=== PATIENT | female | born 1945 | race American Indian/Alaskan Native ===

== ENCOUNTER 2019-07-30 06:13 | Emergency (ER) | payer MEDICARE ==
--- NOTE | 2019-07-30 07:29 | XRay Report ---
CHEST 1 VIEW INDICATION: Chest Pain. COMPARISON: 03/03/2014 FINDINGS: Support devices: None. Heart: Within normal limits. Lungs/Pleura: Minimal streaky right basilar airspace disease with otherwise clear lungs. Additional findings: None. IMPRESSION: 1. Pulmonary findings as above. Signer Name: Efrain Gallegos MD Signed: 07/30/2019 7:24 AM Workstation Name: [id number]
[2019-07-30 07:56] LABS: Basophils # (Auto) 0.1 K/mm3 (0.0-0.1); Basophils % (Auto) 0.8 % (0.0-1.8); Eosinophils # (Auto) 0.2 K/mm3 (0.0-0.4); Eosinophils % (Auto) 1.9 % (0.0-4.3); Hematocrit 33.4 % (30.3-42.9); Lymphocytes % (Auto) 11.1 % (13.4-35.0); Mean Corpuscular HGB Conc 33 % (30-34); Mean Corpuscular Volume 96 fl (79-97); Monocytes # (Auto) 0.6 K/mm3 (0.0-0.8); Monocytes % (Auto) 6.6 % (0.0-7.3); Platelet Count 272 K/mm3 (140-440); Red Blood Count 3.49 M/mm3 (3.65-5.03); Red Cell Distribution Width 13.7 % (13.2-15.2)
[2019-07-30 08:22] LABS: BUN/Creatinine Ratio 26; Blood Urea Nitrogen 23 mg/dL (7-17); Calcium 10.1 mg/dL (8.4-10.2); Hemolysis Index 4
[2019-07-30] MEDS ORDERED: ALBUTEROL 2.5 MG/3 ML NEBU IH ONE (08:28)
--- NOTE | 2019-07-30 08:53 | Emergency Department Report ---
<BETHZAIRE SHI - Last Filed: 07/30/19 18:13> ED Shortness of Breath HPI - General Chief Complaint: Dyspnea/Respdistress Stated Complaint: FLUID IN HEART Time Seen by Provider: 07/30/19 08:13 Source: patient Mode of arrival: Ambulatory Limitations: No Limitations - History of Present Illness Initial Comments: This is a 74-year-old female woke up last night with shortness of breath, and productive cough. Used her albuterol [id number] with no relief. Shortness of breath continued and she was brought to the hospital this morning. She denies chest pain, no leg swelling. She is compliant with all her home medications. No known sick contacts she has not taken flu shot this season. PMH of Asthma, and CHF. Last admission to the hospital on 04/28 for new onset CHF. MD Complaint: shortness of breath, cough -: Sudden Consistency: constant Improves With: nothing Worsens With: nothing Known History Of: asthma, congestive heart failure Associated Symptoms: cough, sputum production Treatments Prior to Arrival: none - Related Data Home Oxygen Therapy: No Previous Rx's Medication Instructions Recorded Last Taken Type Albuterol Sulfate [Proair 90 mcg IH Q4HR PRN #2 aer.[email or web address] 07/30/19 Unknown Rx Respiclick] Ipratropium (Nf) [Atrovent] 2 puff IH Q6HR PRN #1 inha 07/30/19 Unknown Rx levoFLOXacin [Levaquin TAB] 500 mg PO QDAY #5 tablet 07/30/19 Unknown Rx predniSONE [Deltasone] 40 mg PO QDAY #8 tab 07/30/19 Unknown Rx Allergies Allergy/AdvReac Type Severity Reaction Status Date / Time Penicillins Allergy Shortness Verified 03/03/14 06:29 of Breath ED Review of Systems Comment: All other systems reviewed and negative Constitutional: no symptoms reported Respiratory: cough, shortness of breath Cardiovascular: denies: chest pain, palpitations, edema, syncope, paroxysmal nocturnal dyspnea Endocrine: no symptoms reported Skin: denies: rash, lesions ED Past Medical Hx - Past Medical History Previous Medical History?: Yes Hx Hypertension: Yes Hx Congestive Heart Failure: Yes Hx Asthma: Yes Additional medical history: HIGH CHOLESTEROL, hypothyroid, sciatica - Surgical History Past Surgical History?: Yes Hx Appendectomy: Yes Additional Surgical History: C/S - Social History Smoking Status: Former Smoker Substance Use Type: None - Medications Home Medications: Home Medications Medication Instructions Recorded Confirmed Last Taken Type Albuterol Sulfate [Proair 90 mcg IH Q4HR PRN #2 aer.pow.ba 07/30/19 Unknown Rx Respiclick] Ipratropium (Nf) [Atrovent] 2 puff IH Q6HR PRN #1 inha 07/30/19 Unknown Rx levoFLOXacin [Levaquin TAB] 500 mg PO QDAY #5 tablet 07/30/19 Unknown Rx predniSONE [Deltasone] 40 mg PO QDAY #8 tab 07/30/19 Unknown Rx ED Physical Exam - General Limitations: No Limitations General appearance: alert, in no apparent distress - Head Head exam: Present: atraumatic - Eye Eye exam: Present: normal appearance - ENT ENT exam: Present: normal exam - Neck Neck exam: Present: normal inspection - Respiratory Respiratory exam: Present: decreased breath sounds - Cardiovascular Cardiovascular Exam: Present: regular rate, normal heart sounds - GI/Abdominal GI/Abdominal exam: Present: soft. Absent: distended, tenderness, guarding, rebound, rigid - Rectal Rectal exam: Present: deferred - Extremities Exam Extremities exam: Present: normal inspection, full ROM, normal capillary refill. Absent: pedal edema - Back Exam Back exam: Present: normal inspection - Neurological Exam Neurological exam: Present: alert, oriented X3 - Psychiatric Psychiatric exam: Present: normal affect - Skin Skin exam: Present: warm, dry, intact, normal color ED Course - Reevaluation(s) Reevaluation #1: 07/30/19 13:00 Pt in no distress notified of decision to admit. [address] Gutiérrez ED Medical Decision Making - Lab Data Result diagrams: 07/30/19 07:37 07/30/19 07:37 - EKG Data When compared to previous EKG there are: no significant change Interpretation: no acute changes, LVH, other (1st degree AV) - Radiology Data Radiology results: report reviewed FINDINGS: Bolus: Contrast bolus timing is adequate. PTE: No filling defect is present to suggest PTE. Mediastinum: There is mild cardiomegaly with evidence of systolic dysfunction with reflux of contrast into the hepatic veins. Great vessels are unremarkable. No pathologic mediastinal adenopathy. Lungs: There is respiratory motion artifact, with trace right basilar effusion and mild atelectasis greatest in the right middle lobe. No gross consolidation. Upper abdomen: Limited imaging of the upper abdomen shows nothing acute. There is a simple cyst in the right kidney. Bones: Degenerative changes in the spine with nothing acute. IMPRESSION: Negative for PTE. Clear lungs. - Medical Decision Making CTA FINDINGS: Bolus: Contrast bolus timing is adequate. PTE: No filling defect is present to suggest PTE. Mediastinum: There is mild cardiomegaly with evidence of systolic dysfunction with reflux of contrast into the hepatic veins. Great vessels are unremarkable. No pathologic mediastinal adenopathy. Lungs: There is respiratory motion artifact, with trace right basilar effusion and mild atelectasis greatest in the right middle lobe. No gross consolidation. Upper abdomen: Limited imaging of the upper abdomen shows nothing acute. There is a simple cyst in the right kidney. Bones: Degenerative changes in the spine with nothing acute. IMPRESSION: Negative for PTE. Clear lungs. 57 yo with hx of asthma and CHF BNP >5000. EKG no acute changes. Right basilar effusion all case and findings discussed with Dr. Villagran. Pt will be admitted IV lasix, IV levaquin and nebulizer treatment given At 5:30 pm notified that patient has [place] insurance 6:14pm Spoke with [place] Dr. Fong request patient to Transfer to [facility]. Patient notified ED Disposition Clinical Impression: COPD exacerbation Disposition: DC-01 TO HOME OR SELFCARE Is pt being admited?: Yes Does the pt Need Aspirin: No Condition: Stable Instructions: Chronic Obstructive Pulmonary Disease (ED) Additional Instructions: Do not take metformin medication for the next 2 days, if patient takes this medication. Patient may take Tylenol [id number], every 4-6 hours as needed for fever and pain, alternating with Motrin, every 6 hours with food, as needed for fever and pain. Please take albuterol/Atrovent as recommended, and steroids as recommended. Please take the antibiotics as directed, and avoid alcohol consumption. Follow-up tomorrow at the [facility] clinic as instructed. [facility] Address: [address] [place] [address] Hours: Closed ? Opens 8AM Tue Advance diet as tolerated, return to the emergency room right away with new, worsening or different symptoms, or symptoms not present on the initial emergency room evaluation. Referrals: PRIMARY CARE, [Primary Care Provider] - 3-5 Days ([facility] [address] [facility] in [place] Address: [address], [place] [address] Hours: Closed Opens 8AM Tue ) Time of Disposition: 18:17 <GULSHAN TROY - Last Filed: 07/30/19 20:06> ED Review of Systems ROS: Stated complaint: FLUID IN HEART Other details as noted in HPI ED Course Vital Signs 07/30/19 07/30/19 07/30/19 06:16 07:19 08:08 Temperature 101.6 F H 98.0 F Pulse Rate 87 89 84 Pulse Rate [ Anterior Bilateral Throughout] Respiratory 20 22 19 Rate Respiratory Rate [Anterior Bilateral Throughout] Blood Pressure 129/85 Blood Pressure 124/50 [Right] O2 Sat by Pulse 96 95 Oximetry 07/30/19 07/30/19 07/30/19 08:30 09:00 09:26 Temperature Pulse Rate 74 84 Pulse Rate [ 92 H Anterior Bilateral Throughout] Respiratory 18 17 Rate Respiratory 18 Rate [Anterior Bilateral Throughout] Blood Pressure 148/54 123/51 Blood Pressure [Right] O2 Sat by Pulse 100 100 Oximetry 07/30/19 07/30/19 07/30/19 09:30 10:00 11:00 Temperature Pulse Rate 78 85 84 Pulse Rate [ Anterior Bilateral Throughout] Respiratory 19 16 10 L Rate Respiratory Rate [Anterior Bilateral Throughout] Blood Pressure 148/55 144/66 171/60 Blood Pressure [Right] O2 Sat by Pulse 98 96 98 Oximetry 07/30/19 07/30/19 07/30/19 12:01 12:33 13:01 Temperature Pulse Rate 85 79 79 Pulse Rate [ Anterior Bilateral Throughout] Respiratory 18 12 13 Rate Respiratory Rate [Anterior Bilateral Throughout] Blood Pressure 182/82 179/50 165/48 Blood Pressure [Right] O2 Sat by Pulse 97 98 96 Oximetry 07/30/19 07/30/19 07/30/19 13:31 14:31 15:01 Temperature Pulse Rate 76 80 84 Pulse Rate [ Anterior Bilateral Throughout] Respiratory 14 18 Rate Respiratory Rate [Anterior Bilateral Throughout] Blood Pressure 139/61 142/82 104/60 Blood Pressure [Right] O2 Sat by Pulse 98 98 96 Oximetry 07/30/19 07/30/19 07/30/19 15:31 16:01 17:11 Temperature Pulse Rate 85 90 85 Pulse Rate [ Anterior Bilateral Throughout] Respiratory 12 15 Rate Respiratory Rate [Anterior Bilateral Throughout] Blood Pressure 114/66 126/41 133/47 Blood Pressure [Right] O2 Sat by Pulse 95 98 96 Oximetry 07/30/19 07/30/19 07/30/19 17:31 18:00 18:31 Temperature Pulse Rate 86 78 77 Pulse Rate [ Anterior Bilateral Throughout] Respiratory 18 25 H 31 H Rate Respiratory Rate [Anterior Bilateral Throughout] Blood Pressure 88/49 111/72 142/41 Blood Pressure [Right] O2 Sat by Pulse 99 96 96 Oximetry - Reevaluation(s) Reevaluation #2: 07/30/19 19:59 I was asked to evaluate this patient, after the [facility] physician, Dr. Dunbar, after being presented the case by Dr. Fong, [place] coordinating physician, indicated that the patient did not meet admission criteria. This patient was not originally discussed with myself by either the nurse practitioner, or the physician of record. The patient presented with a complaint of shortness of breath and cough. She states that she called her insurance company, who instructed her to presents to the emergency room. She was worried about fluid in her lungs. She denies physical pain at this time. Upon my initial evaluation she is resting com fortably on her right-hand side, and in no acute distress. She does not have tachypnea on my examination. Her breath sounds are clear to auscultation bilaterally. She is saturating at 99% on room air. Laboratory studies, x-ray the chest, CT scan of the chest wall ordered prior to my personal evaluation. X-ray the chest fairly unimpressive. Elevated pro BNP is likely secondary to chronic COPD. CT scan of the chest shows no acute pathology. Patient has been in this department for over 14 hours without significant clinical decompensation. The patient is suitable for a trial of outpatient management, with close outpatient follow-up. Contacted [place] physician, Dr. Fong, and I discussed the patient's physical exam, findings, and updated plan of care. She indicates the patient will be given 24 hour follow-up at the [facility] tomorrow. After prolonged period Of observation, unremarkable vital signs at this time, unremarkable physical examination at this time, patient suitable to follow-up as an outpatient tomorrow at the [facility] for presumed bronchitis and COPD . ED Medical Decision Making - Lab Data Result diagrams: 07/30/19 07:37 07/30/19 07:37 Vital Signs 07/30/19 07/30/19 07/30/19 06:16 07:19 08:08 Temperature 101.6 F H 98.0 F Pulse Rate 87 89 84 Pulse Rate [ Anterior Bilateral Throughout] Respiratory 20 22 19 Rate Respiratory Rate [Anterior Bilateral Throughout] Blood Pressure 129/85 Blood Pressure 124/50 [Right] O2 Sat by Pulse 96 95 Oximetry 07/30/19 07/30/19 07/30/19 08:30 09:00 09:26 Temperature Pulse Rate 74 84 Pulse Rate [ 92 H Anterior Bilateral Throughout] Respiratory 18 17 Rate Respiratory 18 Rate [Anterior Bilateral Throughout] Blood Pressure 148/54 123/51 Blood Pressure [Right] O2 Sat by Pulse 100 100 Oximetry 07/30/19 07/30/19 07/30/19 09:30 10:00 11:00 Temperature Pulse Rate 78 85 84 Pulse Rate [ Anterior Bilateral Throughout] Respiratory 19 16 10 L Rate Respiratory Rate [Anterior Bilateral Throughout] Blood Pressure 148/55 144/66 171/60 Blood Pressure [Right] O2 Sat by Pulse 98 96 98 Oximetry 07/30/19 07/30/19 07/30/19 12:01 12:33 13:01 Temperature Pulse Rate 85 79 79 Pulse Rate [ Anterior Bilateral Throughout] Respiratory 18 12 13 Rate Respiratory Rate [Anterior Bilateral Throughout] Blood Pressure 182/82 179/50 165/48 Blood Pressure [Right] O2 Sat by Pulse 97 98 96 Oximetry 07/30/19 07/30/19 07/30/19 13:31 14:31 15:01 Temperature Pulse Rate 76 80 84 Pulse Rate [ Anterior Bilateral Throughout] Respiratory 14 18 Rate Respiratory Rate [Anterior Bilateral Throughout] Blood Pressure 139/61 142/82 104/60 Blood Pressure [Right] O2 Sat by Pulse 98 98 96 Oximetry 07/30/19 07/30/19 07/30/19 15:31 16:01 17:11 Temperature Pulse Rate 85 90 85 Pulse Rate [ Anterior Bilateral Throughout] Respiratory 12 15 Rate Respiratory Rate [Anterior Bilateral Throughout] Blood Pressure 114/66 126/41 133/47 Blood Pressure [Right] O2 Sat by Pulse 95 98 96 Oximetry 07/30/19 07/30/19 07/30/19 17:31 18:00 18:31 Temperature Pulse Rate 86 78 77 Pulse Rate [ Anterior Bilateral Throughout] Respiratory 18 25 H 31 H Rate Respiratory Rate [Anterior Bilateral Throughout] Blood Pressure 88/49 111/72 142/41 Blood Pressure [Right] O2 Sat by Pulse 99 96 96 Oximetry Lab Results 07/30/19 07/30/19 07/30/19 Range/Units 07:37 07:37 07:37 WBC 9.2 (4.5-11.0) K/mm3 RBC 3.49 L (3.65-5.03) M/mm3 Hgb 11.0 (10.1-14.3) gm/dl Hct 33.4 (30.3-42.9) % MCV 96 (79-97) fl MCH 32 (28-32) pg MCHC 33 (30-34) % RDW 13.7 (13.2-15.2) % Plt Count 272 (140-440) K/mm3 Lymph % (Auto) 11.1 L (13.4-35.0) % [place] % (Auto) 6.6 (0.0-7.3) % Eos % (Auto) 1.9 (0.0-4.3) % Baso % (Auto) 0.8 (0.0-1.8) % Lymph # 1.0 L (1.2-5.4) K/mm3 [place] # 0.6 (0.0-0.8) K/mm3 Eos # 0.2 (0.0-0.4) K/mm3 Baso # 0.1 (0.0-0.1) K/mm3 Seg Neutrophils % 79.6 H (40.0-70.0) % Seg Neutrophils # 7.3 (1.8-7.7) K/mm3 PT (12.2-14.9) Sec. INR (0.87-1.13) APTT (24.2-36.6) Sec. Sodium 142 (137-145) mmol/L Potassium 4.0 (3.6-5.0) mmol/L Chloride 102.2 (98-107) mmol/L Carbon Dioxide 23 (22-30) mmol/L Anion Gap 21 mmol/L BUN 23 H (7-17) mg/dL Creatinine 0.9 (0.7-1.2) mg/dL Estimated GFR > 60 ml/min BUN/Creatinine Ratio 26 % Glucose 114 H (65-100) mg/dL Lactic Acid (0.7-2.0) mmol/L Calcium 10.1 (8.4-10.2) mg/dL Magnesium (1.7-2.3) mg/dL Total Bilirubin (0.1-1.2) mg/dL Direct Bilirubin (0-0.2) mg/dL AST (5-40) units/L ALT (7-56) units/L Alkaline Phosphatase (35-129) units/L Troponin T < 0.010 (0.00-0.029) ng/mL NT-Pro-B Natriuret Pep 5381 H 5425 H (0-900) pg/mL Total Protein (6.3-8.2) g/dL Albumin (3.9-5) g/dL Albumin/Globulin Ratio % 07/30/19 07/30/19 07/30/19 Range/Units 08:57 08:57 09:17 WBC (4.5-11.0) K/mm3 RBC (3.65-5.03) M/mm3 Hgb (10.1-14.3) gm/dl Hct (30.3-42.9) % MCV (79-97) fl MCH (28-32) pg MCHC (30-34) % RDW (13.2-15.2) % Plt Count (140-440) K/mm3 Lymph % (Auto) (13.4-35.0) % [place] % (Auto) (0.0-7.3) % Eos % (Auto) (0.0-4.3) % Baso % (Auto) (0.0-1.8) % Lymph # (1.2-5.4) K/mm3 [place] # (0.0-0.8) K/mm3 Eos # (0.0-0.4) K/mm3 Baso # (0.0-0.1) K/mm3 Seg Neutrophils % (40.0-70.0) % Seg Neutrophils # (1.8-7.7) K/mm3 PT 12.9 (12.2-14.9) Sec. INR 0.96 (0.87-1.13) APTT 31.4 (24.2-36.6) Sec. Sodium (137-145) mmol/L Potassium (3.6-5.0) mmol/L Chloride (98-107) mmol/L Carbon Dioxide (22-30) mmol/L Anion Gap mmol/L BUN (7-17) mg/dL Creatinine (0.7-1.2) mg/dL Estimated GFR ml/min BUN/Creatinine Ratio % Glucose (65-100) mg/dL Lactic Acid 1.50 (0.7-2.0) mmol/L Calcium (8.4-10.2) mg/dL Magnesium 2.00 (1.7-2.3) mg/dL Total Bilirubin 0.60 (0.1-1.2) mg/dL Direct Bilirubin < 0.2 (0-0.2) mg/dL AST 19 (5-40) units/L ALT 22 (7-56) units/L Alkaline Phosphatase 63 (35-129) units/L Troponin T < 0.010 (0.00-0.029) ng/mL NT-Pro-B Natriuret Pep (0-900) pg/mL Total Protein 7.8 (6.3-8.2) g/dL Albumin 4.0 (3.9-5) g/dL Albumin/Globulin Ratio 1.1 % - EKG Data -: EKG Interpreted by Ca EKG shows normal: sinus rhythm Rate: normal - EKG Data When compared to previous EKG there are: previous EKG unavailable 07/30/19 19:59 There is no prior EKG available for evaluation at this time. The EKG today shows a sinus rhythm, 84 bpm, normal axis, QTC prolonged, SD interval prolonged, left ventricular hypertrophy, atrial enlargement. The EKG is not consistent with ST elevation myocardial infarction. - Radiology Data Radiology results: report reviewed, image reviewed Critical care attestation.: If time is entered above; I have spent that time in minutes in the direct care of this critically ill patient, excluding procedure time. ED Disposition Is pt being admited?: No Does the pt Need Aspirin: No
[2019-07-30 09:48] LABS: INR 0.96 (0.87-1.13)
[2019-07-30 09:49] LABS: Partial Thromboplastin Time 31.4 Sec. (24.2-36.6)
[2019-07-30 10:06] LABS: Alanine Aminotransferase 22 units/L (7-56); Bilirubin,Direct < 0.2 mg/dL (0-0.2)
[2019-07-30] MEDS ORDERED: ACETAMINOPHEN 325 MG TAB PO ONE (10:14)
--- NOTE | 2019-07-30 11:01 | Cat Scan Report ---
CTA chest with contrast INDICATION : DUANE. TECHNIQUE: Axial imaging performed through the chest, with contrast bolus timing set to maximize opa cification of the pulmonary arteries. 3-plane MIP reformatted images were obtained. All CT scans at this location are performed using CT dose reduction for ALARA by means of automated exposure control. 100 mL of intravenous contrast administered. COMPARISON: CTA chest from 03/03/2014 FINDINGS: Bolus: Contrast bolus timing is adequate. PTE: No filling defect is present to suggest PTE. Mediastinum: There is mild cardiomegaly with evidence of systolic dysfunction with reflux of contras t into the hepatic veins. Great vessels are unremarkable. No pathologic mediastinal adenopathy. Lungs: There is respiratory motion artifact, with trace right basilar effusion and mild atelectasis greatest in the right middle lobe. No gross consolidation. Upper abdomen: Limited imaging of the upper abdomen shows nothing acute. There is a simple cyst in the right kidney. Bones: Degenerative changes in the spine with nothing acute. IMPRESSION: Negative for PTE. Clear lungs. Signer Name: Efrain Gallegos MD Signed: 07/30/2019 10:56 AM Workstation Name: [id number]
[2019-07-30] MEDS ORDERED: FUROSEMIDE 40 MG/4 ML INJ IV ONE (11:14)
[2019-07-30 18:43] VITALS: BP 142/41
[2019-07-30] MEDS ORDERED: dexAMETHasone 20 MG/5 ML VIAL ONE (20:10)
== END 2019-07-30 21:03 | disposition home or self-care (01) ==
LOC: ED 06:13
DX: J44.1 Chronic obstructive pulmonary disease with (acute) exacerbation (principal); I11.0 Hypertensive heart disease with heart failure; I50.9 Heart failure, unspecified; E78.00 Pure hypercholesterolemia, unspecified; Z90.49 Acquired absence of other specified parts of digestive tract; Z87.891 Personal history of nicotine dependence; Z79.899 Other long term (current) drug therapy; Z88.0 Allergy status to penicillin
CPT/HCPCS: 36415; 71045; 71275; 80048; 80076; 82140; 83735; 83880; 84484; 85025; 85610; 85730; 87040; 93005; 93010; 94640; 96365; 96366; 96375; 99285; J1940; J1956; Q9967; 94644; J1100

== ENCOUNTER 2020-04-19 13:21 | Emergency (ER) | payer MEDICARE ==
--- NOTE | 2020-04-19 14:04 | Emergency Department Report ---
HPI - General Chief Complaint: Neuro Symptoms/Deficit Time Seen by Provider: 04/19/20 13:34 - HPI HPI: [facility] Date of Service: 04/19/2020 13:33:20 Impression: Rule Out Acute Ischemic Stroke Comments/Sign-Out: Patients clinical features can be compatible with diagnosis of acute ischemic stroke however other vascular and non-vascular conditions that present with an acute neurological deficit simulating acute ischemic stroke is possible. Chief differential include: Thoracic/lumbar pathology Metrics: Last Known Well: 04/19/2020 12:00:01 [facility] Notification Time: 04/19/2020 13:33:01 Arrival Time: 04/19/2020 13:25:20 Stamp Time: 04/19/2020 13:33:20 Time First Login Attempt: 04/19/2020 13:35:59 Video Start Time: 04/19/2020 13:35:59 Symptoms: b/l LE weakness NIHSS Start Assessment Time: 04/19/2020 13:58:38 Patient is not a candidate for Alteplase/Activase. Patient was not deemed candidate for Alteplase/Activase thrombolytics because of NIHSS 0, b/l LE weakness, pt has a long h/o sciatica. Will need imaging of T and L spine. Video End Time: 04/19/2020 14:01:50 CT head was reviewed and results were: left MCA hypodensity Clinical Presentation is not Suggestive of Large Vessel Occlusive Disease Radiologist was not called back for review of advanced imaging because NA ED Physician notified of diagnostic impression and management plan on 04/19/2020 14:02:25 Alteplase/Activase Contraindications: Our recommendations are outlined below. Recommendations: Activate Stroke Protocol Admission/Order Set Stroke/Telemetry Floor Neuro Checks Bedside Swallow Eval DVT Prophylaxis IV Fluids, Normal Saline Head of Bed 30 Degrees Euglycemia and Avoid Hyperthermia (PRN Acetaminophen) Antiplatelet Therapy Recommended MRI T and L spine Routine Consultation with Inhouse Neurology for Follow up Care Sign Out: Discussed with Emergency Department Provider History of Present Illness: Patient is a 74 year old Female. Patient was brought by private transportation with symptoms of b/l LE weakness Patient seen in ED Information obtained from patient [place] ,she suffers from long standing LBP h/o CVA with language deficits at that time Left MCA), Bronchitis, HTN, sciatica, CHF Chronology: LKW 12:00 noon pt developed weakness in both legs and dizzy. She did not fall CTH: left MCA hypodensity Medications:pt says she is on a blood thinner but does not know the name BP: 148/66 Blood glucose:86 Last seen normal was within 4.5 hours. There is no history of hemorrhagic complications or intracranial hemorrhage. There is no history of Recent Anticoagulants. There is no history of recent major surgery. There is no history of recent stroke. Past Medical History: Hypertension Stroke Examination: 1A: Level of Consciousness - Alert; keenly responsive + 0 1B: Ask Month and Age - Both Questions Right + 0 1C: Blink Eyes & Squeeze Hands - Performs Both Tasks + 0 2: Test Horizontal Extraocular Movements - Normal + 0 3: Test Visual Murphy - No Visual Loss + 0 4: Test Facial Palsy (Use Grimace if Obtunded) - Normal symmetry + 0 5A: Test Left Arm Motor Drift - No Drift for 10 Seconds + 0 5B: Test Right Arm Motor Drift - No Drift for 10 Seconds + 0 6A: Test Left Leg Motor Drift - No Drift for 5 Seconds + 0 6B: Test Right Leg Motor Drift - No Drift for 5 Seconds + 0 7: Test Limb Ataxia (FNF/Heel-Lezama) - No Ataxia + 0 8: Test Sensation - Normal; No sensory loss + 0 9: Test Language/Aphasia - Normal; No aphasia + 0 10: Test Dysarthria - Normal + 0 11: Test Extinction/Inattention - No abnormality + 0 NIHSS Score: 0 Patient/Family was informed the Neurology Consult would happen via TeleHealth consult by way of interactive audio and video telecommunications and consented to receiving care in this manner. Due to the immediate potential for life-threatening deterioration due to underlying acute neurologic illness, I spent 35 minutes providing critical care. This time includes time for face to face visit via telemedicine, review of medical records, imaging studies and discussion of findings with providers, the patient and/or family. Dr Verónica Hernandez [facility] Case [id number] ED Past Medical Hx - Past Medical History Previous Medical History?: Yes Hx Hypertension: Yes Hx CVA: Yes Hx Congestive Heart Failure: Yes Hx Asthma: Yes Additional medical history: HIGH CHOLESTEROL, hypothyroid, sciatica - Surgical History Past Surgical History?: Yes Hx Appendectomy: Yes Additional Surgical History: C/S - Social History Smoking Status: Unknown if ever smoked - Medications Home Medications: Home Medications Medication Instructions Recorded Confirmed Last Taken Type Apixaban [Eliquis] 5 mg PO Q12HR #60 tablet 09/03/19 Unknown Rx AtorvaSTATin [Lipitor] 40 mg PO QHS #30 tablet 09/03/19 Unknown Rx Furosemide [Lasix TAB] 40 mg PO QDAY #30 09/03/19 Unknown Rx Levothyroxine [Synthroid] 25 mcg PO DAILY@0600 #30 tablet 09/03/19 Unknown Rx Metoprolol [Lopressor TAB] 25 mg PO BID #60 tablet 09/03/19 Unknown Rx lisinopriL [Zestril TAB] 10 mg PO QDAY #30 tablet 09/03/19 Unknown Rx ED Review of Systems ROS: Stated complaint: WEAKNESS Other details as noted in HPI Physical Exam - Physical Exam Vital Signs: Vital Signs 04/19/20 04/19/20 13:27 13:53 Temperature 98 F Pulse Rate 69 88 Respiratory 18 18 Rate Blood Pressure 142/86 Blood Pressure 175/100 [Right] O2 Sat by Pulse 97 100 Oximetry ED Course Vital Signs 04/19/20 04/19/20 13:27 13:53 Temperature 98 F Pulse Rate 69 88 Respiratory 18 18 Rate Blood Pressure 142/86 Blood Pressure 175/100 [Right] O2 Sat by Pulse 97 100 Oximetry Critical care attestation.: If time is entered above; I have spent that time in minutes in the direct care of this critically ill patient, excluding procedure time. ED Disposition Clinical Impression: CVA (cerebral vascular accident) Disposition: OP ADMIT IP TO THIS HOSP Is pt being admited?: Yes Condition: Stable
--- NOTE | 2020-04-19 14:05 | Cat Scan Report ---
CT HEAD WITHOUT CONTRAST INDICATION / CLINICAL INFORMATION: Code stroke, weakness in legs, history of CVA. TECHNIQUE: All CT scans at this location are performed using CT dose reduction for ALARA by means of automated e xposure control. COMPARISON: CT head dated 08/28/2019. FINDINGS: HEMORRHAGE: None. EXTRA-AXIAL SPACES: Normal in size and morphology for the patient's age. VENTRICULAR SYSTEM: Normal in size and morphology for the patient's age. CEREBRAL PARENCHYMA: Chronic left MCA territory infarct with encephalomalacia. No acute territorial i nfarct is suspected. MIDLINE SHIFT OR HERNIATION: None. CEREBELLUM / BRAINSTEM: No significant abnormality. ORBITS: Normal as visualized. SOFT TISSUES of HEAD: No significant abnormality. CALVARIUM: No significant abnormality. PARANASAL SINUSES / MASTOID AIR CELLS: Normal as visualized. ADDITIONAL FINDINGS: None. IMPRESSION: 1. Remote left MCA territory distribution infarct without acute intracranial abnormality. CRITICAL RESULT: Code stroke protocol Time of Discovery (COMMODITIES CLERK/CDT): 12:55 PM Time of Communication (COMMODITIES CLERK/CDT): 1:00 PM Licensed Practitioner Receiving Report: Dr. Granados Read Back Performed: Yes. Signer Name: Delfino Call MD Signed: 04/19/2020 2:00 PM Workstation Name: [id number]
[2020-04-19 14:38] LABS: Basophils # (Auto) 0.1 K/mm3 (0.0-0.1); Basophils % (Auto) 2.1 % (0.0-1.8); Eosinophils # (Auto) 0.2 K/mm3 (0.0-0.4); Eosinophils % (Auto) 3.7 % (0.0-4.3); Hematocrit 31.2 % (30.3-42.9); Hemoglobin 10.4 gm/dl (10.1-14.3); Lymphocytes # (Auto) 1.8 K/mm3 (1.2-5.4); Mean Corpuscular HGB Conc 33 % (30-34); Mean Corpuscular Volume 96 fl (79-97); Monocytes # (Auto) 0.5 K/mm3 (0.0-0.8); Monocytes % (Auto) 9.4 % (0.0-7.3); Platelet Count 216 K/mm3 (140-440); Red Blood Count 3.25 M/mm3 (3.65-5.03); Red Cell Distribution Width 13.3 % (13.2-15.2)
--- NOTE | 2020-04-19 14:47 | Emergency Department Report ---
<JAYLA VALDEZ - Last Filed: 04/19/20 16:55> ED Neuro Deficit HPI - General Chief Complaint: Neuro Symptoms/Deficit Stated Complaint: WEAKNESS Time Seen by Provider: 04/19/20 13:34 - Related Data Home Medications: Previous Rx's Medication Instructions Recorded Last Taken Type Apixaban [Eliquis] 5 mg PO Q12HR #60 tablet 09/03/19 Unknown Rx AtorvaSTATin [Lipitor] 40 mg PO QHS #30 tablet 09/03/19 Unknown Rx Furosemide [Lasix TAB] 40 mg PO QDAY #30 09/03/19 Unknown Rx Levothyroxine [Synthroid] 25 mcg PO DAILY@0600 #30 tablet 09/03/19 Unknown Rx Metoprolol [Lopressor TAB] 25 mg PO BID #60 tablet 09/03/19 Unknown Rx lisinopriL [Zestril TAB] 10 mg PO QDAY #30 tablet 09/03/19 Unknown Rx Allergies/Adverse Reactions: Allergies Allergy/AdvReac Type Severity Reaction Status Date / Time Penicillins Allergy Shortness Verified 03/03/14 06:29 of Breath ED Past Medical Hx - Medications Home Medications: Home Medications Medication Instructions Recorded Confirmed Last Taken Type Apixaban [Eliquis] 5 mg PO Q12HR #60 tablet 09/03/19 Unknown Rx AtorvaSTATin [Lipitor] 40 mg PO QHS #30 tablet 09/03/19 Unknown Rx Furosemide [Lasix TAB] 40 mg PO QDAY #30 09/03/19 Unknown Rx Levothyroxine [Synthroid] 25 mcg PO DAILY@0600 #30 tablet 09/03/19 Unknown Rx Metoprolol [Lopressor TAB] 25 mg PO BID #60 tablet 09/03/19 Unknown Rx lisinopriL [Zestril TAB] 10 mg PO QDAY #30 tablet 09/03/19 Unknown Rx - Lab Data Result diagrams: 04/19/20 13:56 04/19/20 13:56 - Medical Decision Making I spoke with [place] physician Dr. Jorge. She arranged acceptance of patient to inpatient unit at [facility]. Dr. Taylor is the accepting hospitalist. ED Disposition Clinical Impression: Weakness of both lower extremities, CHF (congestive heart failure), Left middle cerebral artery stroke, CVA (cerebral vascular accident), Essential hypertension Disposition: DC/TX-70 ANOTHER TYPE HLTHCARE Is pt being admited?: No Does the pt Need Aspirin: No Condition: Stable <ROSENDO TAYLOR - Last Filed: 04/20/20 07:09> ED Neuro Deficit HPI - General Source: patient Mode of arrival: Ambulatory Limitations: No Limitations - History of Present Illness Initial Comments: Patient is 74-year-old female with history of hypertension, congestive heart failure and left MCA stroke in August 2019. Patient brought to the emergency room by private vehicle [place] 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 Patient stated that approximately around 12:00 this afternoon after she finished her lunch she turned and tried to stand up and felt her legs gave up on her. Patient denied any upper extremity weakness. Patient also denied any headache, speech or visual problem. Patient also denied any bowel or bladder incontinence. Stroke protocol immediately initiated. Patient immediately moved to CT for stat CT brain without contrast. Dr. Hernandez, stroke tele-neurologist front office clerk. He stated that patient symptoms might be from a thoracolumbar spinal lesion or compression and patient will need stat MRI and the neurosurgeon consult. -: Sudden, This afternoon Location: left leg, right leg Presenting Symptoms: Present: Weak/Paralyzed One Side History of same: No Place: work Severity: moderate Associated Symptoms: denies other symptoms ED Review of Systems ROS: Stated complaint: WEAKNESS Other details as noted in HPI Comment: All other systems reviewed and negative Constitutional: denies: chills, fever Respiratory: denies: cough, shortness of breath, SOB with exertion Cardiovascular: denies: chest pain, palpitations Gastrointestinal: denies: abdominal pain, nausea, vomiting Musculoskeletal: denies: back pain Neurological: denies: headache, weakness, numbness, paresthesias, confusion ED Past Medical Hx - Past Medical History Previous Medical History?: Yes Hx Hypertension: Yes Hx CVA: Yes Hx Congestive Heart Failure: Yes Hx Asthma: Yes Additional medical history: HIGH CHOLESTEROL, hypothyroid, sciatica - Surgical History Past Surgical History?: Yes Hx Appendectomy: Yes Additional Surgical History: C/S - Social History Smoking Status: Unknown if ever smoked ED Neuro Physical Exam - General Limitations: No Limitations General appearance: alert, in no apparent distress Suspected Stroke: Yes - Head Head exam: Present: atraumatic, normocephalic - Eye Eye exam: Present: normal appearance, PERRL - ENT ENT exam: Present: normal exam, normal orophraynx, mucous membranes moist - Neck Neck exam: Present: normal inspection, full ROM. Absent: tenderness, meningismus - Respiratory Respiratory exam: Present: normal lung sounds bilaterally - Cardiovascular Cardiovascular Exam: Present: regular rate, normal rhythm, normal heart sounds - GI/Abdominal GI/Abdominal exam: Present: soft, normal bowel sounds. Absent: distended, tenderness, guarding, rebound, rigid, organomegaly, mass, bruit, pulsatile mass, hernia - Extremities Exam Extremities exam: Present: normal inspection, full ROM, normal capillary refill. Absent: pedal edema, calf tenderness - Back Exam Back exam: Present: normal inspection, full ROM. Absent: CVA tenderness (R), CVA tenderness (L) - Neurological Exam Neurological exam: Present: alert, oriented X3, CN II-XII intact, motor sensory deficit - NIHSS Assessment Interval: Baseline 1a. Level of Consciousness: alert/keenly responsive 1b. LOC Questions: answers both correctly 1c. LOC Commands: performs tasks correctly 2. Best Gaze: normal 3. Visual: no visual loss 4. Facial Palsy: normal symmetrical movement 5b. Motor Arm Right: no drift 5a. Motor Arm Left: no drift 6a. Motor Leg Left: no drift 6b. Motor Leg Right: no drift 7. Limb Ataxia: absent 8. Sensory: normal 9. Best Language: no aphasia 10. Dysarthria: normal 11. Extinction/Inattention: no abnormality Total Score: 0 Stroke Severity: No Stroke Symptoms - Psychiatric Psychiatric exam: Present: normal mood - Skin Skin exam: Present: warm, intact, normal color. Absent: cyanosis, diaphoretic, erythema, urticaria, petechiae ED Course Vital Signs 04/19/20 04/19/20 04/19/20 13:27 13:53 14:00 Temperature 98 F Pulse Rate 69 88 74 Respiratory 18 18 17 Rate Blood Pressure 142/86 149/66 Blood Pressure 175/100 [Right] O2 Sat by Pulse 97 100 96 Oximetry 04/19/20 04/19/20 04/19/20 14:16 14:30 15:00 Temperature Pulse Rate 85 74 Respiratory 15 18 17 Rate Blood Pressure 149/66 149/66 Blood Pressure [Right] O2 Sat by Pulse 99 98 Oximetry 04/19/20 04/19/20 04/19/20 15:16 15:30 15:46 Temperature Pulse Rate 81 70 77 Respiratory 14 18 18 Rate Blood Pressure 141/78 144/61 149/66 Blood Pressure [Right] O2 Sat by Pulse 98 98 97 Oximetry 04/19/20 04/19/20 04/19/20 16:46 17:00 19:59 Temperature Pulse Rate 82 80 Respiratory 20 27 H Rate Blood Pressure 134/63 134/63 160/87 Blood Pressure [Right] O2 Sat by Pulse 100 98 100 Oximetry 04/19/20 20:16 Temperature Pulse Rate 77 Respiratory 15 Rate Blood Pressure 167/77 Blood Pressure [Right] O2 Sat by Pulse 98 Oximetry - Reevaluation(s) Reevaluation #1: 04/19/20 14:48 I discussed the patient with [facility] for transfer for MRI and neurosurgical consult however [place] said they are on diversion. Reevaluation #2: 04/19/20 14:49 I discussed the patient with [place] transfer center. Waiting for neurosurgeon to call back. Reevaluation #3: 04/19/20 15:42 [facility] front office clerk paged to discuss the patient transfer. - Lab Data Result diagrams: 04/19/20 13:56 04/19/20 13:56 Lab Results 04/19/20 04/19/20 04/19/20 Range/Units 13:40 13:56 13:56 WBC 5.3 (4.5-11.0) K/mm3 RBC 3.25 L (3.65-5.03) M/mm3 Hgb 10.4 (10.1-14.3) gm/dl Hct 31.2 (30.3-42.9) % MCV 96 (79-97) fl MCH 32 (28-32) pg MCHC 33 (30-34) % RDW 13.3 (13.2-15.2) % Plt Count 216 (140-440) K/mm3 Lymph % (Auto) 33.0 (13.4-35.0) % [place] % (Auto) 9.4 H (0.0-7.3) % Eos % (Auto) 3.7 (0.0-4.3) % Baso % (Auto) 2.1 H (0.0-1.8) % Lymph # 1.8 (1.2-5.4) K/mm3 [place] # 0.5 (0.0-0.8) K/mm3 Eos # 0.2 (0.0-0.4) K/mm3 Baso # 0.1 (0.0-0.1) K/mm3 Seg Neutrophils % 51.8 (40.0-70.0) % Seg Neutrophils # 2.7 (1.8-7.7) K/mm3 PT 15.1 H (12.2-14.9) Sec. INR 1.16 H (0.87-1.13) APTT 45.4 H (24.2-36.6) Sec. Thrombin Time (15.1-19.6) Sec. Sodium 138 (137-145) mmol/L Potassium 4.5 (3.6-5.0) mmol/L Chloride 102.8 (98-107) mmol/L Carbon Dioxide 22 (22-30) mmol/L Anion Gap 18 mmol/L BUN 27 H (7-17) mg/dL Creatinine 0.9 (0.6-1.2) mg/dL Estimated GFR > 60 ml/min BUN/Creatinine Ratio 30 % Glucose 96 (65-100) mg/dL Calcium 9.0 (8.4-10.2) mg/dL Troponin T < 0.010 (0.00-0.029) ng/mL 04/19/20 Range/Units 13:56 WBC (4.5-11.0) K/mm3 RBC (3.65-5.03) M/mm3 Hgb (10.1-14.3) gm/dl Hct (30.3-42.9) % MCV (79-97) fl MCH (28-32) pg MCHC (30-34) % RDW (13.2-15.2) % Plt Count (140-440) K/mm3 Lymph % (Auto) (13.4-35.0) % [place] % (Auto) (0.0-7.3) % Eos % (Auto) (0.0-4.3) % Baso % (Auto) (0.0-1.8) % Lymph # (1.2-5.4) K/mm3 [place] # (0.0-0.8) K/mm3 Eos # (0.0-0.4) K/mm3 Baso # (0.0-0.1) K/mm3 Seg Neutrophils % (40.0-70.0) % Seg Neutrophils # (1.8-7.7) K/mm3 PT (12.2-14.9) Sec. INR (0.87-1.13) APTT (24.2-36.6) Sec. Thrombin Time 102.3 H (15.1-19.6) Sec. Sodium (137-145) mmol/L Potassium (3.6-5.0) mmol/L Chloride (98-107) mmol/L Carbon Dioxide (22-30) mmol/L Anion Gap mmol/L BUN (7-17) mg/dL Creatinine (0.6-1.2) mg/dL Estimated GFR ml/min BUN/Creatinine Ratio % Glucose (65-100) mg/dL Calcium (8.4-10.2) mg/dL Troponin T (0.00-0.029) ng/mL - EKG Data -: EKG Interpreted by Me Rate: normal Interpretation: no acute changes - Radiology Data Radiology results: report reviewed - Medical Decision Making Patient is 74-year-old female with history of hypertension, congestive heart failure and left MCA stroke in August 2019. Patient brought to the emergency room by private vehicle [place] her [place] of [place]. 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 Patient stated that approximately around 12:00 this afternoon after she finished her lunch she turned and tried to stand up and felt her legs gave up on her. Patient denied any upper extremity weakness. Patient also denied any headache, speech or visual problem. Patient also denied any bowel or bladder incontinence. Stroke protocol immediately initiated. Patient immediately moved to CT for stat CT brain without contrast. Dr. Hernandez, stroke tele-neurologist front office clerk. He stated that patient symptoms might be from a thoracolumbar spinal lesion or compression and patient will need stat MRI and the neurosurgeon consult. I discussed the patient with [place]. Ania MD [place] [facility] [place] stated that she will call her hospitalist and call me back. Critical Care Time: Yes Critical care time in (mins) excluding proc time.: 45 Critical care attestation.: If time is entered above; I have spent that time in minutes in the direct care of this critically ill patient, excluding procedure time. ED Disposition Is pt being admited?: No
[2020-04-19 14:48] LABS: INR 1.16 (0.87-1.13)
[2020-04-19 14:49] LABS: Partial Thromboplastin Time 45.4 Sec. (24.2-36.6)
[2020-04-19 14:52] LABS: BUN/Creatinine Ratio 30; Blood Urea Nitrogen 27 mg/dL (7-17); Hemolysis Index 19
[2020-04-19] MEDS ORDERED: IPRATROPIUM/ALBUTEROL SULFATE 3 ML AMPUL.NEB IH ONE (20:03)
[2020-04-19 23:12] VITALS: BP 167/77
== END 2020-04-19 20:10 | disposition other institution (70) ==
LOC: ED 13:21
DX: I63.9 Cerebral infarction, unspecified (principal); R53.1 Weakness; I11.0 Hypertensive heart disease with heart failure; I50.9 Heart failure, unspecified; J45.909 Unspecified asthma, uncomplicated; Z90.49 Acquired absence of other specified parts of digestive tract; Z98.890 Other specified postprocedural states; Z88.0 Allergy status to penicillin
CPT/HCPCS: 36415; 70450; 80048; 82962; 84484; 85025; 85610; 85670; 85730; 93005